=== PATIENT | male | born 1980 | race American Indian/Alaskan Native ===

== ENCOUNTER 2024-07-18 18:00 | Emergency (ER) | payer BC ==
[2024-07-18] MEDS ORDERED: Ibuprofen 400 MG Tab PO ONE (18:01)
[2024-07-18] MEDS: Diphtheria,Pertussis(Acell),Tetanus Vaccine 0.5 ML Syringe IM ONE (18:30)
== END 2024-07-18 18:40 | disposition home or self-care (01) ==
LOC: FB.ED 18:00
DX: S41.111A Laceration without foreign body of right upper arm, initial encounter (principal); W26.8XXA Contact with other sharp object(s), not elsewhere classified, initial encounter; Z23 Encounter for immunization
CPT/HCPCS: 90471; 90715; 99282; A9270